=== PATIENT | female | born 1930 | race Caucasian/White ===

== ENCOUNTER 2016-05-11 12:54 | Emergency (ER) | payer OTHER ==
[~2016-05-11] VITALS: Ht 149.9 cm; Wt 61.3 kg
[~2016-05-11 12:54] MED LIST: AMLODIPINE BESYL5 MG PO; BACTRIM,SEPT1 TABLET; FUROSEMIDE40 MG PO; HYDROCHLOROTHIA25 MG; KLOR-CON 1010 ME1 PO; LOVASTATIN20 MG PO; METOPROLOL TAR100 MG PO; TRAMADOL HCL50 MG
[2016-05-11 13:27] LABS: HEMATOCRIT 46.4 % (36.0-46.0); MCH 28.6 PG (29.0-34.0); MCHC 32.1 G/DL (30.0-36.0); MCV 89.1 FL (83-99); MEAN PLAT.VOLUME 9.9 uM^3 (9.5-12.4); PLATELET COUNT 293 K/uL (156-360); RBC DIS.WIDTH-CV 12.7 % (11.8-14.6); RBC DIS.WIDTH-SD 41.4 % (39-53); RED BLOOD COUNT 5.21 M/uL (3.80-5.20)
[2016-05-11 13:31] LABS: WHITE BLOOD COUNT 8.9 K/uL (4.1-10.2)
[2016-05-11 13:35] LABS: CHLORIDE 106 mEq/L (99-109); POTASSIUM 3.5 mEq/L (3.7-5.4); SODIUM 144 mEq/L (136-147)
[2016-05-11 13:37] LABS: GLUCOSE 122 mg/dL (70-99)
[2016-05-11 13:38] LABS: ANION GAP 12 MEQ/L (2-14)
[2016-05-11 13:41] LABS: GFR ESTIMATE (CALCULATED) 41 mL/min/; UREA NITROGEN (BUN) 23 mg/dL (9-23)
[2016-05-11] MEDS ORDERED: CIPRO500 MG PO (13:49)
[2016-05-11 13:52] LABS: ADD MIUA? YES; BILIRUBIN NEGATIVE; BLOOD NEGATIVE; COLOR YELLOW ((YELLOW)); GLUCOSE (STRIP) NEGATIVE; KETONES 5; LEUKOCYTES TRACE; NITRITE NEGATIVE; PROTEIN (STRIP) NEGATIVE; SPECIFIC GRAVITY 1.016 (1.000-1.030)
[2016-05-11 14:02] LABS: BACTERIA NONE SEEN /HPF; EPITHELIAL CELLS RARE /HPF; MUCUS NONE SEEN /LPF; RED BLOOD CELLS 0-5 /HPF (0-5); UCUL ADDED? NO; WHITE BLOOD CELLS 0-5 /HPF (0-5)
[2016-05-11 15:15] VITALS: BP 114/54
== END 2016-05-11 16:00 ==
LOC: EME → EDBD 12:54 → EME 12:54
PROVIDERS: Emergency Medicine
DX: F03.90 Unspecified dementia, unspecified severity, without behavioral disturbance, psychotic disturbance, mood disturbance, and anxiety (principal); R41.82 Altered mental status, unspecified; E78.5 Hyperlipidemia, unspecified; I10 Essential (primary) hypertension; G89.29 Other chronic pain; Z96.652 Presence of left artificial knee joint; Z96.651 Presence of right artificial knee joint
CPT/HCPCS: 70450; 80048; 81003; 85027; 99281; 99285

== ENCOUNTER 2016-07-05 11:15 | Inpatient (IN) | payer OTHER ==
[~2016-07-05] VITALS: Ht 152.4 cm; Wt 75.7 kg
[~2016-07-05 11:15] MED LIST changes: +CIPRO500 MG PO
[2016-07-05 12:48] LABS: EOSINOPHIL (%) 0.1 % (0-5); HEMATOCRIT 43.6 % (36.0-46.0); IMMATURE GRANULOCYTE (%) 0.7 % (0.0-0.7); IMMATURE GRANULOCYTE COUNT 0.1 K/uL; INSTRUMENT ABS NEUTROPHIL CT 11.6 K/uL; LYMPHOCYTE COUNT 0.9 K/uL (1.0-2.8); MCH 28.7 PG (29.0-34.0); MCHC 32.3 G/DL (30.0-36.0); MCV 88.6 FL (83-99); MEAN PLAT.VOLUME 10.2 uM^3 (9.5-12.4); MONOCYTE (%) 9.6 % (3-12); MONOCYTE COUNT 1.3 K/uL (0-0.8); NEUTROPHIL (%) 82.8 % (45-76); NEUTROPHIL COUNT 11.6 K/uL (1.8-6.4); PLATELET COUNT 237 K/uL (156-360); RBC DIS.WIDTH-CV 13.7 % (11.8-14.6); RBC DIS.WIDTH-SD 44.4 % (39-53); RED BLOOD COUNT 4.92 M/uL (3.80-5.20)
[2016-07-05 13:00] LABS: CHLORIDE 104 mEq/L (99-109); POTASSIUM 3.8 mEq/L (3.7-5.4); SODIUM 142 mEq/L (136-147)
[2016-07-05 13:02] LABS: GLUCOSE 126 mg/dL (70-99)
[2016-07-05 13:03] LABS: ANION GAP 15 MEQ/L (2-14)
[2016-07-05 13:06] LABS: GFR ESTIMATE (CALCULATED) 50 mL/min/; UREA NITROGEN (BUN) 18 mg/dL (9-23)
[2016-07-05 13:14] LABS: TROP-I INTERPRETATION INDETERMINATE; TROPONIN-I 0.56 ng/mL (0.0-0.30)
[2016-07-05] MEDS ORDERED: ESCITALOPRAM OXA5 MG PO (15:05)
[2016-07-05] MEDS ORDERED: METOPROLOL TART50 MG PO (15:06)
[2016-07-05 18:05] VITALS: BP 86/52
[2016-07-05 19:45] VITALS: BP 90/60
[2016-07-05 21:08] LABS: TROP-I INTERPRETATION POSITIVE
[2016-07-05 23:26] LABS: HEMATOCRIT 39.4 % (36.0-46.0); MCH 28.6 PG (29.0-34.0); MCHC 32.2 G/DL (30.0-36.0); MCV 88.7 FL (83-99); MEAN PLAT.VOLUME 10.1 uM^3 (9.5-12.4); PLATELET COUNT 209 K/uL (156-360); RBC DIS.WIDTH-CV 13.8 % (11.8-14.6); RBC DIS.WIDTH-SD 44.8 % (39-53); RED BLOOD COUNT 4.44 M/uL (3.80-5.20); WHITE BLOOD COUNT 10.4 K/uL (4.1-10.2)
[2016-07-05 23:51] VITALS: BP 94/64
[2016-07-06 00:10] LABS: INTER. NORMALIZED RATIO 1.1; PROTHROMBIN TIME 11.4 (9.2-11.2)
[2016-07-06 04:05] VITALS: BP 119/70
[2016-07-06 07:13] LABS: TROP-I INTERPRETATION POSITIVE; TROPONIN-I 1.07 ng/mL (0.0-0.30)
[2016-07-06 08:13] VITALS: BP 116/64
[2016-07-06 11:07] VITALS: BP 135/61
[2016-07-06 14:06] LABS: INTER. NORMALIZED RATIO 1.2; PROTHROMBIN TIME 12.2 (9.2-11.2)
[2016-07-06 14:09] LABS: PTT > 150.0 (25-32)
[2016-07-06 16:56] VITALS: BP 116/59
[2016-07-06 19:32] VITALS: BP 172/85
[2016-07-06 19:41] LABS: INTER. NORMALIZED RATIO 1.2
[2016-07-06 19:44] LABS: PTT 66.6 (25-32)
[2016-07-06 23:48] VITALS: BP 119/62
[2016-07-07 04:50] VITALS: BP 128/69
[2016-07-07 06:20] LABS: EOSINOPHIL (%) 0.1 % (0-5); HEMATOCRIT 36.9 % (36.0-46.0); IMMATURE GRANULOCYTE (%) 0.6 % (0.0-0.7); IMMATURE GRANULOCYTE COUNT 0.1 K/uL; INSTRUMENT ABS NEUTROPHIL CT 6.4 K/uL; LYMPHOCYTE COUNT 1.5 K/uL (1.0-2.8); MCH 28.5 PG (29.0-34.0); MCHC 31.7 G/DL (30.0-36.0); MCV 89.8 FL (83-99); MEAN PLAT.VOLUME 10.6 uM^3 (9.5-12.4); MONOCYTE (%) 9.2 % (3-12); MONOCYTE COUNT 0.8 K/uL (0-0.8); NEUTROPHIL (%) 73.2 % (45-76); NEUTROPHIL COUNT 6.4 K/uL (1.8-6.4); NRBC (%) 0.2 /100 WBC (0-0); PLATELET COUNT 187 K/uL (156-360); RBC DIS.WIDTH-CV 14.6 % (11.8-14.6); RBC DIS.WIDTH-SD 47.3 % (39-53); RED BLOOD COUNT 4.11 M/uL (3.80-5.20); WHITE BLOOD COUNT 8.7 K/uL (4.1-10.2)
[2016-07-07 06:40] LABS: ANION GAP 14 MEQ/L (2-14); CHLORIDE 112 MEQ/L (99-109); GFR ESTIMATE (CALCULATED) > 59 mL/min/; GLUCOSE 106 mg/dL (70-99); POTASSIUM 3.4 MEQ/L (3.7-5.4); SAMPLE HEMOLYSIS CHECK 0; SAMPLE ICTERIC CHECK 0; SAMPLE LIPEMIA CHECK 0; SODIUM 145 MEQ/L (136-147); UREA NITROGEN (BUN) 19 mg/dL (9-23)
[2016-07-07 07:32] VITALS: BP 154/93
[2016-07-07 11:49] VITALS: BP 123/67
[2016-07-07 16:27] VITALS: BP 148/67
[2016-07-07 18:40] LABS: INTER. NORMALIZED RATIO 1.3; PROTHROMBIN TIME 13.7 (9.2-11.2)
[2016-07-07 19:06] VITALS: BP 114/64
[2016-07-07 19:20] LABS: PTT 73.4 (25-32)
[2016-07-07 23:32] VITALS: BP 132/64
[2016-07-08 05:00] VITALS: BP 144/62
[2016-07-08 07:39] VITALS: BP 172/95
[2016-07-08 11:48] VITALS: BP 186/81
[2016-07-08 15:21] VITALS: BP 149/79
[2016-07-08 17:59] LABS: ANION GAP 11 MEQ/L (2-14); CHLORIDE 119 MEQ/L (99-109); GFR ESTIMATE (CALCULATED) > 59 mL/min/; GLUCOSE 139 mg/dL (70-99); SAMPLE HEMOLYSIS CHECK 0; SAMPLE ICTERIC CHECK 0; SAMPLE LIPEMIA CHECK 0; SODIUM 144 MEQ/L (136-147); UREA NITROGEN (BUN) 21 mg/dL (9-23)
[2016-07-08 18:02] LABS: POTASSIUM 4.7 MEQ/L (3.7-5.4)
[2016-07-08 21:16] VITALS: BP 149/71
[2016-07-09 00:41] VITALS: BP 139/89
[2016-07-09 05:18] VITALS: BP 135/95
[2016-07-09 06:25] LABS: HEMATOCRIT 36.9 % (36.0-46.0); MCH 28.4 PG (29.0-34.0); MCHC 31.2 G/DL (30.0-36.0); MCV 91.1 FL (83-99); NRBC (%) 3.8 /100 WBC (0-0); RBC DIS.WIDTH-CV 15.2 % (11.8-14.6); RBC DIS.WIDTH-SD 49.4 % (39-53); RED BLOOD COUNT 4.05 M/uL (3.80-5.20); WHITE BLOOD COUNT 11.2 K/uL (4.1-10.2)
[2016-07-09 06:35] LABS: ANION GAP 11 MEQ/L (2-14); CHLORIDE 116 MEQ/L (99-109); GFR ESTIMATE (CALCULATED) > 59 mL/min/; GLUCOSE 110 mg/dL (70-99); POTASSIUM 4.2 MEQ/L (3.7-5.4); SAMPLE HEMOLYSIS CHECK 0; SAMPLE ICTERIC CHECK 0; SAMPLE LIPEMIA CHECK 0; SODIUM 144 MEQ/L (136-147); UREA NITROGEN (BUN) 20 mg/dL (9-23)
[2016-07-09 06:58] LABS: EOSINOPHIL (%) 0.2 % (0-5); IMMATURE GRANULOCYTE (%) 2.4 % (0.0-0.7); IMMATURE GRANULOCYTE COUNT 0.3 K/uL; INSTRUMENT ABS NEUTROPHIL CT 8.3 K/uL; LYMPHOCYTE COUNT 1.6 K/uL (1.0-2.8); MEAN PLAT.VOLUME 10.9 uM^3 (9.5-12.4); MONOCYTE (%) 8.5 % (3-12); NEUTROPHIL (%) 74.3 % (45-76); NEUTROPHIL COUNT 8.3 K/uL (1.8-6.4); PLAT.SUFFICIENCY DECREASED
[2016-07-09 07:22] LABS: PLATELET COUNT 121 K/uL (156-360)
[2016-07-09 09:00] VITALS: BP 167/93
[2016-07-09 12:40] VITALS: BP 117/65
[2016-07-09] MEDS ORDERED: MORPHINE CON20 MG/M1 PO (13:43)
== END 2016-07-09 17:24 | disposition home or self-care (01) | DRG 176 ==
LOC: EME 11:15 → EDOF 14:20 → 4EAST 14:20
PROVIDERS: Emergency Medicine; Internal Medicine; Internal Medicine Cardiovascular Disease
DX: I26.99 Other pulmonary embolism without acute cor pulmonale (principal); I82.441 Acute embolism and thrombosis of right tibial vein; I95.1 Orthostatic hypotension; R55 Syncope and collapse; R00.0 Tachycardia, unspecified; I10 Essential (primary) hypertension; E78.5 Hyperlipidemia, unspecified; G30.9 Alzheimer's disease, unspecified; F02.80 Dementia in other diseases classified elsewhere, unspecified severity, without behavioral disturbance, psychotic disturbance, mood disturbance, and anxiety; F32.9 Major depressive disorder, single episode, unspecified; F17.200 Nicotine dependence, unspecified, uncomplicated; R79.89 Other specified abnormal findings of blood chemistry; Z51.5 Encounter for palliative care
CPT/HCPCS: 70450; 71010; 71275; 73030; 80048; 84484; 85025; 85027; 85610; 85730; 87086; 92610 GN; 93005; 93306; 93970; 94799; 99281; 99285; J1644; J3480; J7030; J7040